=== PATIENT | female | born 1995 | race Caucasian/White ===

== ENCOUNTER 2016-06-02 18:10 | Emergency (ER) | payer BC ==
[~2016-06-02] VITALS: Ht 175.3 cm; Wt 100.0 kg
[~2016-06-02 18:10] MED LIST: CEPH500C3 PO; FLAG500T PO; LISI-360 PO; TRAM50 PO
[2016-06-02 19:29] VITALS: BP 207/126; PULSE 74; RESP 18; TEMP 98.4; O2SAT 100
[2016-06-02] MEDS ORDERED: diphenhydrAMINE HCL 25 MG CAP PO ONE (19:30)
[2016-06-02] MEDS ORDERED: predniSONE 20 MG TAB PO ONE (19:30)
[2016-06-02] MEDS ORDERED: FAMOTIDINE 20 MG TAB PO ONE (19:30)
--- NOTE | 2016-06-02 19:33 | PD ---
HPI Chief Complaint: Skin Problem Time Seen by Provider: 19:29 Travel History International Travel<30 days: No Contact w/Intl Traveler<30days: No Traveled to known affect area: No History of Present Illness HPI Patient comes in for evaluation of rash that began around 11:00 today. Patient states that she started new blood pressure medication amlodipine today taking the first dose this morning. Patient states she was at work when the pruritic rash began. Patient states began on her right low back since spread over almost her entire body. Patient denies any respiratory involvement, edema anywhere, or sensation of throat closing. Patient states she's also been on antibiotics doxycycline for the past 6 days for UTI which she has never had before and using Mucinex [id number] for bronchitis. Patient denies any other known new allergen exposures. 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 Patient states she took a shower for this made the rash worse and washed her clothes. Patient denies any progression of the rash since. Patient denies doing anything else to try to improve the rash. Patient states rash seems to be worse when she scratches it. Patient has her medications with her. PFSH Past Medical History Cardiovascular Problems: Yes (HTN) Diminished Hearing: No Hypertension: Yes ?: Not LMP: 05/14/16 : 0 Social History Alcohol Use: Yes (occasionaly ) Tobacco Use: No Allergies-Medications (Allergen,Severity, Reaction): Coded Allergies: No Known Allergies (Unverified , 06/02/16) Reported Meds & Prescriptions Reported Meds & Active Scripts Active Pepcid (Famotidine) 20 Mg Tab 20 Mg PO BID 10 Days Medrol Dosepak (Methylprednisolone) 4 Mg Dspk 4 Mg PO DIRECTED Per Pharmacist direction Review of Systems Except as stated in HPI: all other systems reviewed are Neg Physical Exam Narrative GENERAL: Well-developed, well nourished, in no acute distress, and non-ill appearing. SKIN: Warm and dry. Nonspecific blanching rash consistent with urticaria noted bilateral upper extremities and trunk. There is no fluctuation, induration, or crepitus. Appears consistent with an allergic reaction. HEAD: Atraumatic. Normocephalic. EYES: Pupils equal and round. EOMI. No scleral icterus. No injection or drainage. ENT: No nasal bleeding or discharge. Mucous membranes pink and moist. NECK: Trachea midline. No stridor. Supple. No nuclear rigidity. CARDIOVASCULAR: Regular rate and rhythm. No murmur appreciated. RESPIRATORY: No accessory muscle use. No respiratory distress. Clear to auscultation. Breath sounds equal bilaterally. Patient speaking in full sentences without difficulty. MUSCULOSKELETAL: No obvious deformities. No clubbing. No cyanosis. No edema. Full range of motion. NEUROLOGICAL: Awake and alert. No obvious cranial nerve deficits. Motor grossly within normal limits. Normal speech. PSYCHIATRIC: Appropriate mood and affect; insight and judgment normal. Data Data Last Documented VS Vital Signs Date Time Temp Pulse Resp B/P Pulse Ox O2 Delivery O2 Flow Rate FiO2 06/02/16 20:54 70 14 178/100 100 Room Air 06/02/16 19:29 98.4 Orders Prednisone (Deltasone) (06/02/16 19:30) Famotidine (Pepcid) (06/02/16 19:30) Diphenhydramine (Benadryl) (06/02/16 19:30) [facility] Medical Decision Making Medical Screen Exam Complete: Yes Emergency Medical Condition: Yes Differential Diagnosis Allergic reaction, pruritic rash, nonspecific dermatitis, other Narrative Course Appears allergic reaction. There is no airway involvement nor difficulty swallowing. The patient is tolerating fluids. The patient looks great, the findings are minimal and due to nonprogression of symptoms here the patient is safe to discharge home. Patient reports she is feeling better. The patient feels comfortable with plan and will return immediately if symptoms begin to worsen. The rash is not consistent with erythema multiforme at this time. The patient is to continue histamine 1 and 2 blockade as well as steroids. The patient was instructed to avoid potential precipitating factor and to follow up with their regular physician tomorrow. The patient agrees with plan. Patient in no obvious distress upon re-evaluation. Discussed patient with Dr. Rojas, prior to discharge, who is in agreement with plain of care and disposition. Patient was asked if they wanted to speak to my attending, which the patient did not wish to do at this time. Any questions/concerns in reference to patient diagnosis/condition discussed and clarified prior to patient's discharge. Reinforced sheer importance of close follow up with patient 's primary physician or primary care clinic. Instructed patient to return to ED immediately, if symptoms return/worsen. Pt showed understanding of above instructions. Further instructions and recommendations were detailed in discharge paperwork. Pt ambulated without difficulty out of ED at discharge. Diagnosis Primary Impression: Allergic reaction Qualified Code: T78.40XA - Allergic reaction, initial encounter Patient Instructions: General Allergic Reaction (ED), General Instructions Additional Instructions: Follow-up with your primary care physician tomorrow for reevaluation. Stop taking antibiotic, [id number] medication you have been taking, and the blood pressure medication until reevaluated by your primary care doctor tomorrow. Take all medication as prescribed today. Use ngyz-qpt-pelthoz Benadryl or Claritin or Zyrtec to help with itching. Follow instructions on the packaging. Return to the emergency department if symptoms get worse. Med/Other Pt SpecificInfo: Prescription(s) given Scripts Famotidine (Pepcid)20 Mg Tab20 Mg PO BID 10 Days Ref 0 Prov:Tiana Bowden MD 06/02/16 Methylprednisolone Dosepak (Medrol Dosepak)4 Mg Dspk4 Mg PO DIRECTED #1 DSPK Ref 0 Per Pharmacist direction Prov:Tiana Bowden MD 06/02/16 Disposition: 01 DISCHARGE HOME Condition: Stable Asif Salinas Jun 02, 2016 19:33
[2016-06-02 20:28] VITALS: BP 200/127; PULSE 74; RESP 16; O2SAT 100
[2016-06-02 20:54] VITALS: BP 178/100; PULSE 70; RESP 14; O2SAT 100
[2016-06-02] MEDS ORDERED: MEDR4PAK PO (21:07)
[2016-06-02] MEDS ORDERED: FAMO1TAB37 PO (21:07)
== END 2016-06-02 21:17 | disposition home or self-care (01) ==
LOC: NEPB 18:10
DX: R21 Rash and other nonspecific skin eruption (principal); T46.1X5A Adverse effect of calcium-channel blockers, initial encounter; Y92.9 Unspecified place or not applicable
CPT/HCPCS: 99282; J7512

== ENCOUNTER 2016-07-31 22:44 | Emergency (ER) | payer BC ==
[~2016-07-31 22:44] MED LIST changes: -CEPH500C3 PO; +FAMO1TAB37 PO; -FLAG500T PO; -LISI-360 PO; +MEDR4PAK PO; -TRAM50 PO
[2016-07-31 22:46] VITALS: BP 202/110; PULSE 96; RESP 16; TEMP 98.8; O2SAT 96
[2016-07-31 22:52] VITALS: BP 134/75; PULSE 70; RESP 16; TEMP 98.5; O2SAT 98
--- NOTE | 2016-08-01 00:40 | PD ---
HPI Chief Complaint: Musculoskeletal Complaint Time Seen by Provider: 00:37 Travel History International Travel<30 days: No Contact w/Intl Traveler<30days: No Traveled to known affect area: No History of Present Illness HPI 20-year-old female presents to emergency department for evaluation of right ankle swelling. Patient states that 4 months ago she sprained her right ankle. She has undergone to x-rays with no bony abnormality identified. She states that she has been unable to take the breaks that she needs at work and she has been working constantly so she feels that this is why her ankle swollen. She reports no new injuries. No alterations in range of motion. No other symptoms to report. Patient states that she is in physical therapy and believes that this may also be contributing to the swelling. She has no other symptoms to report. PFSH Past Medical History Cardiovascular Problems: Yes (HTN) Diminished Hearing: No Hypertension: Yes ?: Not : 0 Social History Alcohol Use: Yes (occasionaly ) Tobacco Use: No Allergies-Medications (Allergen,Severity, Reaction): Coded Allergies: No Known Allergies (Unverified , 07/31/16) Reported Meds & Prescriptions Reported Meds & Active Scripts Active Pepcid (Famotidine) 20 Mg Tab 20 Mg PO BID 10 Days Medrol Dosepak (Methylprednisolone) 4 Mg Dspk 4 Mg PO DIRECTED Per Pharmacist direction Review of Systems Except as stated in HPI: all other systems reviewed are Neg Physical Exam Narrative GENERAL: Well-nourished, well-developed female patient, ambulatory with a nonantalgic gait no acute distress SKIN: Focused skin assessment warm/dry. HEAD: Normocephalic. EYES: No scleral icterus. No injection or drainage. NECK: Supple, trachea midline. No JVD or lymphadenopathy. CARDIOVASCULAR: Regular rate and rhythm without murmurs, gallops, or rubs. RESPIRATORY: Breath sounds equal bilaterally. No accessory muscle use. GASTROINTESTINAL: Abdomen soft, non-tender, nondistended. EXTREMITY: The right ankle is minimally swollen and tender over the lateral aspect but the skin is intact and there is no ligamentous instability. There is no deformity. The foot and toes are warm and well-perfused. Sensation to pain and light touch is intact. BACK: Nontender without obvious deformity. No CVA tenderness. Data Data Last Documented VS Vital Signs Date Time Temp Pulse Resp B/P Pulse Ox O2 Delivery O2 Flow Rate FiO2 07/31/16 22:52 98.5 70 16 134/75 98 Room Air MDM Medical Decision Making Medical Screen Exam Complete: Yes Emergency Medical Condition: Yes Medical Record Reviewed: Yes Differential Diagnosis Sprain versus fracture versus contusion versus dependent edema Narrative Course 20-year-old female presents to the emergency department for evaluation of right ankle swelling with a history of ankle sprain 4 months ago. Physical exam is reassuring. There is very minimal swelling of the lateral aspect of the right ankle. Patient is requesting a work note. The ankle is Hakeem wrap and the patient is advised ice and elevate when possible to reduce treated swelling. She agrees to return immediately with any acute worsening of symptoms. Diagnosis Primary Impression: Right ankle swelling Additional Impression: History of ankle sprain Referrals: Primary Care Physician Patient Instructions: Ankle Exercises (GEN), General Instructions Departure Forms: Tests/Procedures, Work Release Enter return to work date: August 04, 2016 Additional Instructions: Ice and elevate to reduce pain and comfort Follow-up with a primary care provider Hakeem wrap for support and comfort Return immediately with any acute worsening of symptoms Med/Other Pt SpecificInfo: No Change to Meds Disposition: 01 DISCHARGE HOME Condition: Stable Carina Carcamo SHANNAN August 01, 2016 00:40
== END 2016-08-01 01:05 | disposition home or self-care (01) ==
LOC: NEPK 22:44
DX: M25.471 Effusion, right ankle (principal)
CPT/HCPCS: 99283

== ENCOUNTER 2016-09-13 02:02 | Emergency (ER) | payer BC ==
[~2016-09-13] VITALS: Ht 175.3 cm; Wt 100.0 kg
[2016-09-13 02:03] VITALS: BP 181/114; PULSE 88; RESP 16; TEMP 98.7; O2SAT 100
[2016-09-13] MEDS ORDERED: DICL50TA PO (02:12)
[2016-09-13] MEDS ORDERED: LISI-515 PO (02:12)
[2016-09-13 02:55] VITALS: O2SAT 100
--- NOTE | 2016-09-13 03:20 | PD ---
HPI Chief Complaint: Headache Time Seen by Provider: 02:23 Travel History International Travel<30 days: No Contact w/Intl Traveler<30days: No Traveled to known affect area: No History of Present Illness HPI The patient is a 20 year old female who presents to the [facility] emergency department with a history of headache that began 3-4 hours ago. It is located over the temples and the back of her head bilaterally. It is a constant headache. It is similar to a headache she had in the past when her blood pressure was up. She has had nausea but no vomiting. She has had Diarrhea for 2 days. The diarrhea has been occurring approximately 4 times per day. She has also had a cough productive of white to yellow sputum. On review of systems, the patient denies any recent fevers, neck pain, chest pain, shortness of breath , abdominal pain, urinary symptoms, or neurologic symptoms. The patient reports that she is currently taking lisinopril 20 mg twice a day for her blood pressure. Incidentally, the patient also reports that she has been taking Voltaren 1-2 times per day as needed for a right ankle sprain. PcP: Dr. Lazo. LMP: August 29, 2016 [facility] Past Medical History Narrative Medical The patient's past medical history is significant for hypertension, headaches. Cardiovascular Problems: Yes (HTN) Diminished Hearing: No Hypertension: Yes Tetanus Vaccination: < 5 Years Influenza Vaccination: No ?: Unknown LMP: 08/26/16 : 0 Past Surgical History Narrative Surgical The patient's past surgical history is significant for none. Surgical History: No Previous Surgery Social History Alcohol Use: Yes (occasionaly ) Tobacco Use: No Substance Use: No Allergies-Medications (Allergen,Severity, Reaction): Coded Allergies: No Known Allergies (Unverified , 09/13/16) Reported Meds & Prescriptions Reported Meds & Active Scripts Active Reported Lisinopril 20 Mg Tab 20 Mg PO DAILY Diclofenac Potassium 50 Mg Tab 75 Mg PO TID Narrative Medication ankle sprain so taking Diclofenac over the last week and 1/2 Review of Systems Except as stated in HPI: all other systems reviewed are Neg General / Constitutional: No: Fever Eyes: No: Visual changes HENT: Positive: Headaches Cardiovascular: No: Chest Pain or Discomfort Respiratory: No: Shortness of Breath Gastrointestinal: No: Abdominal Pain Genitourinary: No: Dysuria Musculoskeletal: No: Pain Skin: No Rash Neurologic: Positive: Dizziness, Headache, No: Weakness, Focal Abnormalities, Change in Mentation, Slurred Speech, Sensory Disturbance Psychiatric: No: Depression Endocrine: No: Polydipsia Hematologic/Lymphatic: No: Easy Bruising Physical Exam Narrative General: The patient is a well-developed well-nourished female in no acute distress. Head and Neck exam: Head is normocephalic atraumatic. Eyes: EOMI, pupils are equal round and reactive to light. Nose: Midline septum with pink mucous membranes Mouth: Dentition unremarkable. Moist mucus membranes. Posterior oropharynx is not erythematous. No tonsillar hypertrophy. Uvula midline. Airway patent. Neck: No palpable lymphadenopathy. No nuchal rigidity. No thyromegaly. Cardiovascular: Regular rate and rhythm without murmurs, gallops, or rubs. Lungs: Clear to auscultation bilaterally. No wheezes, rhonchi, or rales. Abdomen: Soft, without tenderness to palpation in all 4 quadrants of the abdomen. No guarding, rebound, or rigidity. Normal bowel sounds are audible. No tenderness on palpation of McBurney's point. Negative Ramirez's sign. Extremities: No clubbing, cyanosis, or edema. 2+ pulses in all 4 extremities. No calf tenderness on palpation. Back: No costovertebral angle tenderness to palpation. Neurologic Exam: Cranial nerves 2-12 were intact on exam. Strength is 5/5 in all 4 extremities. No sensory deficits noted. No dysdiadochokinesis. Good finger to nose and Heel to agee bilaterally. Skin Exam: No rash noted. Intact skin that is warm and dry. Data Data Last Documented VS Vital Signs Date Time Temp Pulse Resp B/P Pulse Ox O2 Delivery O2 Flow Rate FiO2 09/13/16 02:55 100 Room Air 09/13/16 02:12 16 09/13/16 02:03 98.7 88 181/114 Orders Complete Blood Count With Diff (09/13/16 02:47) Basic Metabolic Panel (Bmp) (09/13/16 02:47) Urinalysis - C+S If Indicated (09/13/16 02:47) Chest, Single Ap (09/13/16 02:47) Ct Brain W/O Iv Contrast(Rout) (09/13/16 02:47) Iv Access Insert/Monitor (09/13/16 02:47) Ecg Monitoring (09/13/16 02:47) Oximetry (09/13/16 02:47) Ed Urine Pregnancytest Poc (09/13/16 02:47) Sodium Chlor 0.9% 1000 Ml Inj (Ns 1000 M (09/13/16 04:15) Prochlorperazine Inj (Compazine Inj) (09/13/16 04:15) Ketorolac Inj (Toradol Inj) (09/13/16 04:15) Diphenhydramine Inj (Benadryl Inj) (09/13/16 04:15) Labs Laboratory Tests Test 09/13/16 03:08 White Blood Count 15.9 TH/MM3 Red Blood Count 4.42 MIL/MM3 Hemoglobin 13.8 GM/DL Hematocrit 38.9 % Mean Corpuscular Volume 88.0 FL Mean Corpuscular Hemoglobin 31.3 PG Mean Corpuscular Hemoglobin 35.6 % Concent Red Cell Distribution Width 13.4 % Platelet Count 173 TH/MM3 Mean Platelet Volume 10.3 FL Neutrophils (%) (Auto) 63.8 % Lymphocytes (%) (Auto) 27.1 % Monocytes (%) (Auto) 7.4 % Eosinophils (%) (Auto) 1.3 % Basophils (%) (Auto) 0.4 % Neutrophils # (Auto) 10.2 TH/MM3 Lymphocytes # (Auto) 4.3 TH/MM3 Monocytes # (Auto) 1.2 TH/MM3 Eosinophils # (Auto) 0.2 TH/MM3 Basophils # (Auto) 0.1 TH/MM3 CBC Comment DIFF FINAL Differential Comment Urine Color LIGHT-YELLOW Urine Turbidity CLEAR Urine pH 6.5 Urine Specific [place] 1.011 Urine Protein NEG mg/dL Urine Glucose (UA) NEG mg/dL Urine Ketones NEG mg/dL Urine Occult Blood NEG Urine Nitrite NEG Urine Bilirubin NEG Urine Urobilinogen LESS THAN 2.0 MG/DL Urine Leukocyte Esterase NEG Urine WBC 2 /hpf Urine Squamous Epithelial 3 /hpf Cells Urine Mucus FEW /lpf Microscopic Urinalysis Comment CULT NOT INDICATED Sodium Level 141 MEQ/L Potassium Level 4.0 MEQ/L Chloride Level 107 MEQ/L Carbon Dioxide Level 20.5 MEQ/L Anion Gap 14 MEQ/L Blood Urea Nitrogen 12 MG/DL Creatinine 0.62 MG/DL Estimat Glomerular Filtration 122 ML/MIN Rate Random Glucose 93 MG/DL Calcium Level 8.6 MG/DL MDM Medical Decision Making Medical Screen Exam Complete: Yes Emergency Medical Condition: Yes Medical Record Reviewed: Yes Differential Diagnosis Tension headache, versus migraine headache, versus sinusitis, versus hypertension related headache, versus intracranial abnormality Narrative Course During the course of the patients emergency department visit, the patients history, examination, and differential diagnosis were reviewed with the patient. The patient had IV access obtained and blood work sent for analysis. The patient was placed on a cardiac catheterization technician with oximetry and blood pressure monitoring. A chest x-ray, CT scan of the brain was ordered. The patient's blood pressure was rechecked and found to be 133/88. The patient was initially provided normal saline a 1 L IV fluid bolus, Toradol for pain after CT scan of the brain came back without any acute abnormality or hemorrhage. Compazine 5 mg IV, Benadryl 25 mg IV The patients laboratory studies were reviewed and remarkable for a white count of 15.9, hemoglobin 13.8, platelets 173 with a normal differential, basic metabolic profile is remarkable for CO2 20.5, urinalysis is unremarkable. Radiology studies were reviewed and remarkable for a chest x-ray that shows no evidence of acute cardiopulmonary disease, CT scan of the brain shows no acute abnormality. The patient was reassessed and reportedly feeling improved. The patient will be discharged home to follow-up with her primary care physician. The patient is resting comfortably and feels better, is alert and in no distress. The patients results and examination findings were discussed with the patient. The repeat examination is unremarkable and benign. The history, exam, diagnostic testing, and current condition do not suggest any significant pathology to warrant further testing, continued ED treatment, admission, or surgical evaluation at this point. The vital signs have been stable. The patient does not have uncontrollable pain, intractable vomiting, or other significant symptoms. The patient's condition is stable and appropriate for discharge. The patient will pursue further outpatient evaluation with a primary care physician or other designated or consulting physician as indicated in the discharge instructions. The patient expressed understanding and was agreeable with this plan. Diagnosis Primary Impression: Headache Qualified Code: R51 - Acute nonintractable headache, unspecified headache type Additional Impression: Hypertension Qualified Code: I10 - Essential hypertension Referrals: Primary Care Physician 1 week Patient Instructions: Acute Headache (ED), Chronic Hypertension (ED), General Instructions Additional Instructions: Follow-up with your primary care physician within the next week to have your blood pressure rechecked. Disposition: 01 DISCHARGE HOME Condition: Stable Yesenia Baires MD Sep 13, 2016 03:20
[2016-09-13 03:23] LABS: AUTOMATED NEUTROPHIL # 10.2 TH/MM3 (1.8-7.7); BASOPHIL # 0.1 TH/MM3 (0-0.2); BASOPHIL % 0.4 % (0.0-2.0); BLOOD, URINE NEG (NEG); COMMENT (UR) CULT NOT INDICATED; CULTURE IF INDICATED CULT NOT INDICATED; EOSINOPHIL # 0.2 TH/MM3 (0-0.4); EOSINOPHIL % 1.3 % (0.0-4.0); GLUCOSE,URINE NEG (NEG); HEMATOCRIT 38.9 % (35.0-46.0); HEMO FLAGS DIFF FINAL; KETONE, URINE NEG (NEG); LYMPH % 27.1 % (9.0-44.0); LYMPHOCYTE # 4.3 TH/MM3 (1.0-4.8); MEAN CORPUSCULAR HEMOGLOBIN 31.3 PG (27.0-34.0); MEAN CORPUSCULAR HGB CONC 35.6 % (32.0-36.0); MONO % 7.4 % (0.0-8.0); MUCUS URINE FEW /lpf (OCC); NEUT % 63.8 % (16.0-70.0); NITRITE,URINE NEG (NEG); PH, URINE 6.5 (5.0-8.5); PLATELET COUNT 173 TH/MM3 (150-450); RED BLOOD COUNT 4.42 MIL/MM3 (4.00-5.30); RED CELL DISTRIBUTION WIDTH 13.4 % (11.6-17.2); SQUAMOUS EPITHELIAL CELL URINE 3 /hpf (0-5); URINE COLOR LIGHT-YELLOW (YELLW/STRAW); WHITE BLOOD COUNT 15.9 TH/MM3 (4.0-11.0)
--- NOTE | 2016-09-13 03:23 | RADRPT ---
EXAM DATE/TIME: 09/13/2016 03:09 [facility] COMPARISON: CHEST SINGLE AP, September 12, 2014, 22:50. INDICATIONS : Cough. Headaches. MEDICAL HISTORY : None. SURGICAL HISTORY : None. ENCOUNTER: Initial ACUITY: 1 day PAIN SCORE: 0/10 LOCATION: Bilateral chest FINDINGS: A single view of the chest demonstrates the lungs to be symmetrically aerated without evidence of mas s, infiltrate or effusion. The cardiomediastinal contours are unremarkable. Osseous structures are intact. CONCLUSION: No evidence of acute cardiopulmonary disease. Pradeep Finley MD on September 13, 2016 at 3:21 Board Certified Radiologist. This report was verified electronically.
--- NOTE | 2016-09-13 03:49 | RADRPT ---
EXAM DATE/TIME: 09/13/2016 03:32 [facility] COMPARISON: No previous studies available for comparison. INDICATIONS : Cephalgia. RADIATION DOSE: 45.92 CTDIvol (mGy) MEDICAL HISTORY : Hypertension. SURGICAL HISTORY : None. ENCOUNTER: Initial ACUITY: 1 day PAIN SCALE: 7/10 LOCATION: cranial TECHNIQUE: Multiple contiguous axial images were obtained of the head. Using automated exposure control and adj ustment of the mA and/or kV according to patient size, radiation dose was kept as low as reasonably a chievable to obtain optimal diagnostic quality images. FINDINGS: CEREBRUM: The ventricles are normal for age. No evidence of midline shift, mass lesion, hemorrhage or acute in farction. No extra-axial fluid collections are seen. POSTERIOR FOSSA: The cerebellum and brainstem are intact. The 4th ventricle is midline. The cerebellopontine angle i s unremarkable. EXTRACRANIAL: The visualized portion of the orbits is intact. SKULL: The calvaria is intact. No evidence of skull fracture. CONCLUSION: Negative noncontrast head CT. Pradeep Finley MD on September 13, 2016 at 3:47 Board Certified Radiologist. This report was verified electronically.
[2016-09-13 04:07] LABS: BICARBONATE 20.5 MEQ/L (21.0-32.0)
[2016-09-13] MEDS ORDERED: diphenhydrAMINE HCL 50 MG/ML VIAL IV PUSH ONE (04:15)
[2016-09-13] MEDS ORDERED: PROCHLORPERAZINE INJ 10 MG/2 ML VIAL IV PUSH ONE (04:15)
[2016-09-13] MEDS ORDERED: KETOROLAC TROMETHAMINE 30 MG/ML (IVP) VIAL IV PUSH ONE (04:15)
[2016-09-13] MEDS ORDERED: SODIUM CHLOR 0.9% 1000 ML INJ 1,000 ML IV ONE (04:15)
== END 2016-09-13 05:25 | disposition home or self-care (01) ==
LOC: NEPC 02:02
DX: R51 Headache (principal); I10 Essential (primary) hypertension
CPT/HCPCS: 70450; 71010; 80048; 81001; 84703; 85025; 96361; 96374; 96375; 99285; J0780; J1200; J1885; J7030